=== PATIENT | male | born 1950 | race Caucasian/White ===

== ENCOUNTER 2017-11-25 06:35 | Day surgery (SDC) | payer OTHER ==
[~2017-11-25 06:35] MED LIST: ENALAPRIL 40 MG; FORTAMET500 MG; INVOKANA100 MG; LIPITOR40 MG
[2017-11-25] MEDS ORDERED: DUI500 PO (13:37)
[2017-11-25] MEDS ORDERED: OXYC1TAB9 PO (13:37)
== END 2017-11-25 17:50 | disposition home or self-care (01) ==
LOC: CIR.AMB 06:35
DX: M75.122 Complete rotator cuff tear or rupture of left shoulder, not specified as traumatic (principal); M65.811 Other synovitis and tenosynovitis, right shoulder